=== PATIENT | male | born 1995 | race Caucasian/White ===

== ENCOUNTER 2024-10-28 01:45 | Emergency (ER) | payer SELFPAY ==
[~2024-10-28] VITALS: Ht 167.6 cm; Wt 69.0 kg
[2024-10-28 01:48] VITALS: TEMP 37.2; O2SAT 100
[2024-10-28] MEDS ORDERED: BENZ100C86 MT (03:40)
[2024-10-28] MEDS: ACETAMINOPHEN 325MG TABLET PO ONE (03:48)
[2024-10-28 04:32] VITALS: BP 101/67; PULSE 72; RESP 20; O2SAT 100
== END 2024-10-28 04:37 | disposition home or self-care (01) ==
LOC: ER 01:45
DX: J06.9 Acute upper respiratory infection, unspecified (principal); B97.89 Other viral agents as the cause of diseases classified elsewhere
CPT/HCPCS: 71045; 99283